=== PATIENT | male | born 1965 | race African-American/Black ===

== ENCOUNTER 2018-07-30 08:20 | Day surgery (SDC) | payer OTHER ==
[2018-07-29 14:02] VITALS: BMI 29.8
[2018-07-30] MEDS ORDERED: Oxymetazoline HCl 0.05% ( 15 ML ) ONE ×2 (08:51→10:10)
[2018-07-30] MEDS ORDERED: Lidocaine 1% w/Epinephrine 1:100K 20 ML VIAL ONE (10:10)
[2018-07-30] MEDS ORDERED: Bacitracin Zinc Ointment 30 gm TUBE ONE (10:10)
[2018-07-30] MEDS ORDERED: Fentanyl 250 MCG/5 ML VIAL ONE (10:14)
[2018-07-30] MEDS ORDERED: Fentanyl 100 MCG/2 ML VIAL ONE (11:19)
[2018-07-30] MEDS ORDERED: Ondansetron PF 4 MG/2 ML Vial ONE (13:09)
[2018-07-30] MEDS ORDERED: PROPOFOL 200 MG/20 ML VIAL ONE (13:09)
[2018-07-30] MEDS ORDERED: PHENYLEPHRINE-NS 100 MCG/ML 10 ML SYRINGE ONE (13:09)
[2018-07-30] MEDS ORDERED: Ketorolac Tromethamine 30 MG/ML VIAL ONE (13:09)
[2018-07-30] MEDS ORDERED: Dexamethasone 20 MG/5 ML VIAL ONE (13:09)
[2018-07-30] MEDS ORDERED: Lidocaine 1% PF 5 ML VIAL ONE (13:09)
[2018-07-30] MEDS ORDERED: Rocuronium Bromide 10 MG/ML (10ML VIAL) ONE (13:09)
[2018-07-30] MEDS ORDERED: Glycopyrrolate 0.2 MG/ML 5 ML SYRINGE ONE (13:09)
--- NOTE | 2018-07-31 00:45 | OP ---
DATE OF PROCEDURE: 07/30/2018 PREOPERATIVE DIAGNOSES: 1. Chronic rhinosinusitis. 2. Allergic fungal sinusitis. 3. Bilateral inferior turbinate hypertrophy. 4. Nasal obstruction. POSTOPERATIVE DIAGNOSES: 1. Chronic rhinosinusitis. 2. Allergic fungal sinusitis. 3. Bilateral inferior turbinate hypertrophy. 4. Nasal obstruction. PROCEDURES PERFORMED: 1. Bilateral endoscopic sinus surgery, total ethmoidectomies. 2. Bilateral endoscopic sinus surgery, maxillary antrostomies. 3. Bilateral endoscopic sinus surgery, frontal sinusotomies. 4. Bilateral endoscopic sinus surgery, sphenoidotomies. 5. Bilateral inferior turbinate submucosal resection. ESTIMATED BLOOD LOSS: 20 mL. ANESTHESIA: GETA. DESCRIPTION OF PROCEDURE: The patient was taken to the operating room and placed supine on table. General endotracheal anesthesia was obtained by the anesthesia staff. Tube was secured in the left lower lip and the patient was placed in a beach chair position. Following this, the patient was prepped and draped for standard nasal procedure. Following this, a 0-degree endoscope was advanced in the nasal cavity. 1% lidocaine with 1:100,000 epinephrine was injected into the inferior turbinates, middle turbinates, and lateral nasal wall bilaterally. Following this, a [place] elevator was used to medialize the middle turbinates and expose the uncinate process. Following this, the uncinate process was anteriorly fractured using a ball-ended probe bilaterally. Following this, the 0-degree microdebrider and upbiting Blakes[place] forceps were used to remove the uncinate process bilaterally. Following this, the natural maxillary sinus ostia was identified and using the 40-degree microdebrider blade and straight Blakesley forceps, the maxillary sinus ostium was widened bilaterally. On the right side, fungal debris and purulence were encountered and was removed using curved suction and straight suction. Following this, the ethmoidal bulla was identified and was punctured on its medial and inferior aspect and was removed using the microdebrider and upbiting Blakesley forceps bilaterally. Following this, the grand lamella was identified and was punctured into the posterior ethmoidal cells. Working from posterior to anterior, the ethmoidal cells were opened using the microdebrider and upbiting Blakesley forceps. Following this, a 45-degree endoscope and the curved microdebrider blade were used to further open the anterior ethmoidal cells as well as to expose the frontal sinus ostia bilaterally. The frontal sinus ostium was widened bilaterally using the curved microdebrider. Following this, a 0-degree endoscope was advanced medial and inferior to the attachment of the superior turbinates to the posterior nasal wall. Sphenoidotomies were recreated using a [place] tip suction bilaterally. The sphenoidotomies were then widened medially and inferiorly using the 0-degree microdebrider. Following this, the submucosal microdebrider was used to puncture the inferior turbinates on the anterior and inferior aspect and submucosal resection was performed on the anterior and inferior turbinates bilaterally. Following this, the nasal cavity was irrigated. Mirapex was placed within the middle meatus. The patient tolerated the procedure well. Job ID: [id number]
== END 2018-07-30 13:10 | disposition home or self-care (01) ==
LOC: SDC 08:20
PROVIDERS: ATTEND Otolaryngology Plastic Surgery within the Head & Neck
PROC: 099X8ZZ Drainage of Left Sphenoid Sinus, Via Natural or Artificial Opening Endoscopic (ICD-10-PCS; principal; 2018-07-30)
PROC: 099W8ZZ Drainage of Right Sphenoid Sinus, Via Natural or Artificial Opening Endoscopic (ICD-10-PCS; principal; 2018-07-30)
PROC: 09TL7ZZ Resection of Nasal Turbinate, Via Natural or Artificial Opening (ICD-10-PCS; principal; 2018-07-30)
PROC: 09TV8ZZ Resection of Left Ethmoid Sinus, Via Natural or Artificial Opening Endoscopic (ICD-10-PCS; principal; 2018-07-30)
PROC: 099Q8ZZ Drainage of Right Maxillary Sinus, Via Natural or Artificial Opening Endoscopic (ICD-10-PCS; principal; 2018-07-30)
PROC: 099R8ZZ Drainage of Left Maxillary Sinus, Via Natural or Artificial Opening Endoscopic (ICD-10-PCS; principal; 2018-07-30)
PROC: 099S8ZZ Drainage of Right Frontal Sinus, Via Natural or Artificial Opening Endoscopic (ICD-10-PCS; principal; 2018-07-30)
PROC: 09TU8ZZ Resection of Right Ethmoid Sinus, Via Natural or Artificial Opening Endoscopic (ICD-10-PCS; principal; 2018-07-30)
PROC: 099T8ZZ Drainage of Left Frontal Sinus, Via Natural or Artificial Opening Endoscopic (ICD-10-PCS; principal; 2018-07-30)
DX: J32.9 Chronic sinusitis, unspecified (principal); B95.7 Other staphylococcus as the cause of diseases classified elsewhere; J30.89 Other allergic rhinitis; J34.3 Hypertrophy of nasal turbinates; J34.89 Other specified disorders of nose and nasal sinuses; J34.2 Deviated nasal septum; G47.33 Obstructive sleep apnea (adult) (pediatric); Z79.899 Other long term (current) drug therapy; Z88.0 Allergy status to penicillin
CPT/HCPCS: 87070; 87077; 87186; 87205; 93005; 93010; J0131; J2001; J3010